=== PATIENT | female | born 1950 | race Caucasian/White ===

== ENCOUNTER 2018-10-30 20:26 | Emergency (ER) | payer MEDICARE ==
[2018-10-30] MEDS ORDERED: Prochlorperazine 10 MG/2 ML VIAL ONE (20:59)
== END 2018-10-30 21:25 | disposition home or self-care (01) ==
LOC: MADERS 20:26
DX: K52.9 Noninfective gastroenteritis and colitis, unspecified (principal); Z79.899 Other long term (current) drug therapy
CPT/HCPCS: 96374; J0780